=== PATIENT | female | born 1995 | race Caucasian/White ===

== ENCOUNTER 2020-12-02 21:07 | Emergency (ER) | payer OTHER ==
[2020-12-03 01:24] LABS: HEMOGLOBIN 11.4 gm/dl (12.3-15.3); RED BLOOD COUNT 4.47 M/UL (4.00-5.10); WHITE BLOOD COUNT 7.1 K/UL (4.5-11.0)
[2020-12-03 01:47] LABS: BUN/CREATININE RATIO 23 (0-10)
[2020-12-03] MEDS ORDERED: DOXYCYCLINE HY100 MG PO (03:34)
== END 2020-12-03 03:39 | disposition home or self-care (01) ==
LOC: ER1 21:07
PROVIDERS: Family Medicine
DX: J18.9 Pneumonia, unspecified organism (principal); Z20.822 Contact with and (suspected) exposure to COVID-19
CPT/HCPCS: 0240U; 71046; 80053; 82550; 82553; 83874; 83880; 84484; 85025; 93005; 99285

== ENCOUNTER → 2021-03-21 | Outpatient (CLI) | payer OTHER ==
[~2021-03-21] MED LIST: DOXYCYCLINE HY100 MG PO
== END ==
LOC: KOH-I 03-16 10:00
DX: R31.9 Hematuria, unspecified (principal)
CPT/HCPCS: 74176

== ENCOUNTER 2022-06-03 12:20 | Inpatient (IN) | payer OTHER ==
[~2022-06-03] VITALS: Ht 157.5 cm; Wt 195.0 kg
[2022-06-03 13:54] LABS: HEMOGLOBIN 11.1 gm/dl (12.3-15.3); RED BLOOD COUNT 4.52 M/UL (4.00-5.10); WHITE BLOOD COUNT 7.9 K/UL (4.5-11.0)
[2022-06-03 14:02] LABS: BORDETELLA PARAPERTUSSIS Not Detected (Not Detectd); BORDETELLA PERTUSSIS Not Detected (Not Detectd); CHLAMYDIA PNEUMONIAE Not Detected (Not Detectd); CORONAVIRUS HKU1 Not Detected (Not Detectd); CORONAVIRUS NL63 Not Detected (Not Detectd); CORONAVIRUS OC43 Not Detected (Not Detectd); CORONOAVIRUS 229E Not Detected (Not Detectd); HUMAN METAPNEUMOVIRUS Not Detected (Not Detectd); INFLUENZA A Not Detected (Not Detectd); INFLUENZA B Not Detected (Not Detectd); MYCOPLASMA PNEUMONIAE Not Detected (Not Detectd); PARAINFLUENZA VIRUS 1 Not Detected (Not Detectd); PARAINFLUENZA VIRUS 2 Not Detected (Not Detectd); PARAINFLUENZA VIRUS 3 Not Detected (Not Detectd); PARAINFLUENZA VIRUS 4 Not Detected (Not Detectd); RESPIRATORY SYNCYTIAL VIRUS Not Detected (Not Detectd)
[2022-06-03 14:14] LABS: BUN/CREATININE RATIO 11 (0-10)
[2022-06-03 15:00] LABS: HUMAN RHINOVIRUS/ENTEROVIRUS DETECTED (Not Detectd); SARS-CoV-2 NOT DETECTED (Not Detectd)
[2022-06-03] MEDS ORDERED: REXULTI1 MG PO (15:39)
[2022-06-03] MEDS ORDERED: CEFDINIR300 MG PO (15:40)
[2022-06-03] MEDS ORDERED: BROMPHENIR-PSE118 ML PO (15:40)
[2022-06-03] MEDS ORDERED: ESCITALOPRAM OX20 MG PO (15:40)
[2022-06-03] MEDS ORDERED: TRAZODONE HCL100 MG PO (15:40)
[2022-06-03] MEDS ORDERED: TRANDATE 300 M300 MG PO (15:41)
[2022-06-03] MEDS ORDERED: CHLORTHALIDONE25 MG PO (15:41)
[2022-06-04 04:33] LABS: RED BLOOD COUNT 4.42 M/UL (4.00-5.10)
[2022-06-04 04:41] LABS: WHITE BLOOD COUNT 10.7 K/UL (4.5-11.0)
[2022-06-04 05:16] LABS: BUN/CREATININE RATIO 15 (0-10)
[2022-06-04 16:15] LABS: CANDIDA ALBICANS Not Detected (Negative); CANDIDA KRUSEI Not Detected (Negative); CANDIDA TROPICALIS Not Detected (Negative); ESCHERICHIA COLI Not Detected (Negative); HAEMOPHILUS INFLUENZAE Not Detected (Negative); KLEBSIELLA OXYTOCA Not Detected (Negative); KLEBSIELLA PNEUMONIAE Not Detected (Negative); KPC-CARBAPENEM-RESISTANCE GENE Not Detected (Negative); PROTEUS Not Detected (Negative); PSEUDOMONAS AERUGINOSA Not Detected (Negative); SERRATIA MARCESANS Not Detected (Negative); STAPHYLOCOCCUS AUREUS Not Detected (Negative); STREP AGALACTIAE (GROUP B) Not Detected (Negative); STREP PYOGENES (GROUP A) Not Detected (Negative); STREPTOCOCCUS Not Detected (Negative); vanA/B (VANCOMYCIN RESIST GENE Not Detected (Negative)
[2022-06-04 17:33] LABS: STAPHYLOCOCCUS DETECTED (Negative)
[2022-06-05 02:30] LABS: HEMOGLOBIN 11.2 gm/dl (12.3-15.3); RED BLOOD COUNT 4.51 M/UL (4.00-5.10)
[2022-06-05 02:36] LABS: WHITE BLOOD COUNT 18.5 K/UL (4.5-11.0)
[2022-06-05 02:47] LABS: BUN/CREATININE RATIO 20 (0-10)
[2022-06-06 04:41] LABS: HEMOGLOBIN 10.7 gm/dl (12.3-15.3); RED BLOOD COUNT 4.36 M/UL (4.00-5.10); WHITE BLOOD COUNT 16.3 K/UL (4.5-11.0)
[2022-06-06 05:22] LABS: BUN/CREATININE RATIO 22 (0-10)
[2022-06-07] MEDS ORDERED: PROTONIX 40 MG40 M1 PO (08:53)
[2022-06-07] MEDS ORDERED: PREDNISONE 10 M10 MG PO (08:53)
[2022-06-07] MEDS ORDERED: SYMBICORT 80-41 INHA INH (08:57)
[2022-06-07] MEDS ORDERED: AMLODIPINE BESYL5 MG PO (08:57)
[2022-06-07] MEDS ORDERED: PROAIR DIGIHAL90 MCG INH (08:57)
[2022-06-07] MEDS ORDERED: IPRAT-ALBUT 0.5-3 ML INH (09:50)
[2022-06-07] MEDS ORDERED: TRANDATE 300 M300 MG PO (09:50)
[2022-06-07] MEDS ORDERED: NEBULIZER UNIT NEB (09:50)
[2022-06-07] MEDS ORDERED: HYGROTON TAB 2525 MG PO (09:50)
[2022-06-07] MEDS ORDERED: AMLODIPINE BESY10 MG PO (09:56)
== END 2022-06-07 11:41 | disposition home or self-care (01) | DRG 205 ==
LOC: ER1 12:20 → PROG CARE 15:09 → CDU 15:09 → CCU 17:20 → PROG CARE 06-04 13:20
PROVIDERS: Internal Medicine; Internal Medicine Pulmonary Disease; Physician Assistant; Physician Assistant Medical; ADMIT Internal Medicine Infectious Disease
PROC: 5A09357 Assistance with Respiratory Ventilation, Less than 24 Consecutive Hours, Continuous Positive Airway Pressure (ICD-10-PCS; principal; 2022-06-07)
DX: E66.2 Morbid (severe) obesity with alveolar hypoventilation (principal); J96.21 Acute and chronic respiratory failure with hypoxia; J96.22 Acute and chronic respiratory failure with hypercapnia; J45.901 Unspecified asthma with (acute) exacerbation; Z68.45 Body mass index [BMI] 70 or greater, adult; J20.6 Acute bronchitis due to rhinovirus; Z20.822 Contact with and (suspected) exposure to COVID-19; L05.91 Pilonidal cyst without abscess; I10 Essential (primary) hypertension; I16.0 Hypertensive urgency; Z99.81 Dependence on supplemental oxygen; Z83.3 Family history of diabetes mellitus; Z80.9 Family history of malignant neoplasm, unspecified
CPT/HCPCS: 36415; 36600; 71045; 80048; 80053; 81001; 82550; 82553; 82803; 83605; 83735; 83880; 84100; 84484; 85025; 85027; 86140; 87040; 87077; 87150; 87186; 87633; 93005; 94640; 94660; 94664; 94760; 96374; 96375; 99285; J0360; J0696; J1650; J2405; J2920; J2930; J3475